=== PATIENT | male | born 1970 | race Caucasian/White ===

== ENCOUNTER 2017-11-13 16:17 | Emergency (ER) | payer OTHER ==
--- NOTE | 2017-11-13 16:29 | EDPHY ---
H & P Stated Complaint: right leg pain starting a week ago and rash started tuesday Time Seen by Provider: 11/13/17 16:28 HPI/ROS: HPI: This is a 47-year-old male who presents with Chief Complaint: right leg pain starting a week ago and rash started Tuesday Location: Right upper leg-medial aspect Quality: Pain Duration: Several days Signs and Symptoms: + rash, No bleeding, no radiation, no numbness, no weakness , no tingling, no incontinence, no decreased range of motion, no swelling, + pain Timing: Worsening Severity: Moderate to severe Context: Patient has been in [place] since last week visiting family that has cancer and is going through chemotherapy. The day after he landed on Tuesday he started to experience right groin pain and then 3 days later a rash appeared in the same area that was extremely painful and red. The rash is spread down the medial portion of his right lower leg. Denies any urinary symptoms/testicular pain/penile discharge. He was on the airplane for 10 hr and did feel little bit of malaise and headache but attributed it to jet leg. Patient did not do any strenuous activity. No prior history of low back pain. No heavy lifting. Does not cross midline. Rashes consistent in a dermatome. Patient really thought that he may be getting jock itch and applied topical [id number] medication without relief. Unsure if he had chickenpox as a child. Denies any visual changes/facial paresis. Modifying Factors: None Comment: ROS: see HPI Constitutional: No fever, no chills, no weight loss Eyes: No blurred vision Respiratory: No shortness of breath, no cough Cardiovascular: No chest pain Gastrointestinal: No nausea, no vomiting no diarrhea Genitourinary: No dysuria Extremities: No myalgias Neurologic: No weakness, no numbness Skin: No rashes Hematologic: No bruising, no bleeding MEDICAL/SURGICAL/SOCIAL HISTORY: Medical history: Generally healthy. Does not take any regular medications. Surgical history: Denies Social history: Employed. CONSTITUTIONAL: Mild distress, adult white male, awake and alert, no obvious distress HEENT: Atraumatic and normocephalic. NECK: supple, no midline tenderness, flexion 45 degrees, extension 45 degrees, right and left lateral flexion 45 degrees. No meningismus. Cardiovascular: Normal S1/S2, regular rate, regular rhythm, without murmur rub or gallop. PULMONARY/CHEST: Symmetrical and nontender. no crepitus. Clear to auscultation bilaterally. Good air movement. No accessory muscle usage. ABDOMEN: Soft, nondistended, nontender, no ecchymosis. PELVIC: no pain with rocking; bilateral hips flexion 125 degrees, extension 30 degrees, with no pain internal rotation and no pain external rotation. Male : circumcised penis, bilateral descended testes, no testicular swelling, no testicular masses, no penile discharge, no lesions, negative Prehn's sign BACK: No midline tenderness, no paraspinous spasm, deep tendon reflexes 2/2, no pain with straight leg raise EXTREMITIES: 2/2 pulses, strength 5/5, DIP/PIP/MCP flexion/extension intact with good light touch sensation. no deformities, no clubbing, no cyanosis or edema. NEUROLOGICAL: no focal neuro deficits. GCS 15. Light touch sensation intact. SKIN: Warm and dry, maculopapular rash starting in the right upper leg medial aspect scattered down the medial portion in a consistent dermatomes with small patches of vesicles; minimal erythema. no rash. Good capillary refill. Source: Patient Exam Limitations: No limitations - Personal History Current Tetanus/Diphtheria Vaccine: No Current Tetanus Diphtheria and Acellular Pertussis (TDAP): No - Medical/Surgical History Hx Asthma: No Hx Chronic Respiratory Disease: No Hx Diabetes: No Hx Cardiac Disease: No Hx Renal Disease: No Hx Cirrhosis: No Hx Alcoholism: No Hx HIV/AIDS: No Hx Splenectomy or Spleen Trauma: No Other PMH: none reported - Social History Smoking Status: Never smoked Constitutional: Initial Vital Signs Temperature (C) 37 C 11/13/17 16:19 Heart Rate 75 11/13/17 16:19 Respiratory Rate 20 11/13/17 16:19 Blood Pressure 138/97 H 11/13/17 16:19 O2 Sat (%) 97 11/13/17 16:19 O2 Delivery Mode Room Air Allergies/Adverse Reactions: codeine Allergy (Verified 11/13/17 16:18) Home Medications: Medication Instructions Recorded Acyclovir 800 mg PO 5XD #35 tab 11/13/17 Gabapentin [Neurontin 300 MG (*)] 300 mg PO HS #10 cap 11/13/17 oxyCODONE/APAP 5/325 [Percocet 1 - 2 tab PO Q4H PRN #10 tab 11/13/17 5/325 (*)] Medical Decision Making - Diagnostics Imaging Results: Imaging Impressions Pelvis X-Ray 11/13/17 16:34 Impression: No evidence for acute osseous abnormality pelvis. ED Course/Re-evaluation: No ocular involvement. Given acyclovir 800 mg, gabapentin 300 mg, and Percocet Urinalysis, pelvic x-ray, oral medications ordered No testicular/groin pain; testicular ultrasound not indicated. No signs of neurovascular compromise/tenting of skin/compartment syndrome/ extremities and joints examined above and below area of concern and are neurovascularly intact/necrotizing fasciitis/cellulitis. X-ray my read shows no acute process. Moderate stool burden noted. Urinalysis shows no signs of infection/hematuria. 1735: Reassessed patient with moderate improvement in pain. This patient was seen under the supervision of my secondary supervising physician. I evaluated care for this patient independently. Discussed this patient with Dr. Mckeon who did not see the patient. Differential Diagnosis: Differential diagnosis includes but is not limited to shingles, varicella, erythema multiform, dermatitis herpetiformis. - Data Points Laboratory Results: 11/13/17 17:50 Urine Color PALE YELLOW Urine Appearance CLEAR Urine pH 7.0 (5.0-7.5) Ur Specific [place] 1.003 (1.002-1.030) Urine Protein NEGATIVE (NEGATIVE) Urine Ketones NEGATIVE (NEGATIVE) Urine Blood NEGATIVE (NEGATIVE) Urine Nitrate NEGATIVE (NEGATIVE) Urine Bilirubin NEGATIVE (NEGATIVE) Urine Urobilinogen NEGATIVE EU EU (0.2-1.0) Ur Leukocyte Esterase NEGATIVE (NEGATIVE) Urine Glucose NEGATIVE (NEGATIVE) Medications Given: Discontinued Medications Acyclovir (Acyclovir) 800 mg PO EDNOW ONE Stop: 11/13/17 16:36 Last Admin: 11/13/17 16:41 Dose: 800 mg Gabapentin (Neurontin) 300 mg PO EDNOW ONE Stop: 11/13/17 16:37 Last Admin: 11/13/17 16:41 Dose: 300 mg Oxycodone/Acetaminophen (Percocet 5/325) 1 tab PO EDNOW ONE Stop: 11/13/17 16:43 Last Admin: 11/13/17 16:48 Dose: 1 tab Departure - Departure Disposition: Home, Routine, Self-Care Clinical Impression: Shingles Qualifiers: Herpes zoster complications: without complications Qualified Code(s): B02.9 - Zoster without complications Condition: Good Instructions: Shingles (ED) Additional Instructions: Take all medications as directed. Follow-up with your primary care provider in 5-7 days for repeat evaluation. Take lukewarm/cool baths or showers. Do not scratch the rash. Wash the rash daily with mild soap and water and pat dry. Referrals: Rin Denny MD [Primary Care Provider] - 5-7 days, call for appt. Prescriptions: Acyclovir 800 mg PO 5XD #35 tab Gabapentin [Neurontin 300 MG (*)] 300 mg PO HS #10 cap oxyCODONE/APAP 5/325 [Percocet 5/325 (*)] 1 - 2 tab PO Q4H PRN #10 tab PRN Reason: Pain, Severe
[2017-11-13] MEDS ORDERED: ACYCLOVIR 400 MG TAB PO ONE (16:35)
[2017-11-13] MEDS ORDERED: GABAPENTIN 100 MG CAP PO ONE (16:36)
[2017-11-13] MEDS ORDERED: OXYCODONE/APAP 5/325 TAB PO ONE (16:42)
[2017-11-13 17:45] VITALS: BP 125/88; PULSE 66; RESP 18; TEMP 98.1; O2SAT 94
== END 2017-11-13 17:56 | disposition home or self-care (01) ==
DX: B02.9 Zoster without complications (principal)